=== PATIENT | male | born 1980 | race Caucasian/White ===

== ENCOUNTER 2016-05-01 07:21 | Emergency (ER) | payer MEDICAID, OTHER ==
[2016-05-01] MEDS ORDERED: diltiaZEM INJ 5 MG/ML VIAL IVP STA ×3 (07:55→11:00)
[2016-05-01] MEDS ORDERED: diltiaZEM INJ 5 MG/ML VIAL ONE ×2 (08:01→11:00)
[2016-05-01] MEDS ORDERED: MAGNESIUM SULFATE 2 GRAM 50 ML IV ONE ×2 (12:36→12:48)
== END 2016-05-01 13:36 | disposition home or self-care (01) ==
DX: I48.91 Unspecified atrial fibrillation (principal); Z87.891 Personal history of nicotine dependence

== ENCOUNTER 2016-09-03 10:43 | Outpatient (CLI) | payer BC | END 2016-09-03 10:44 | disposition home or self-care (01) | LOC: SC 10:43 | PROVIDERS: ATTEND Internal Medicine Pulmonary Disease | DX: G47.30 Sleep apnea, unspecified (principal); G47.8 Other sleep disorders; R06.83 Snoring; G47.10 Hypersomnia, unspecified | CPT/HCPCS: 99203; 99212 ==

== ENCOUNTER 2016-11-05 15:13 | Outpatient (CLI) | payer BC | END 2016-11-05 15:14 | disposition home or self-care (01) | LOC: SC 15:13 | PROVIDERS: ATTEND Nurse Practitioner Family | DX: Z53.9 Procedure and treatment not carried out, unspecified reason (principal) ==

== ENCOUNTER 2016-11-12 09:23 | Outpatient (CLI) | payer BC | END 2016-11-12 09:24 | disposition home or self-care (01) | LOC: SC 09:23 | PROVIDERS: ATTEND Nurse Practitioner Family | DX: G47.33 Obstructive sleep apnea (adult) (pediatric) (principal) | CPT/HCPCS: 99212; 99214 ==

== ENCOUNTER 2017-01-10 16:36 | Outpatient (CLI) | payer BC ==
--- NOTE | 2017-01-11 09:00 | XRAY Report ---
TWO-VIEW CHEST: 01/10/2017 CLINICAL INDICATION: Cough, fever. COMPARISON: 05/01/2016, 04/04/2016 FINDINGS: Frontal and lateral views of the chest demonstrate a normal cardiac silhouette. The lungs remain clear. Previously questioned nodular density in the left lateral lower chest does not persis t. No effusion or pneumothorax is present. IMPRESSION: NORMAL CHEST. JOB #: [id number] EXT JOB #:[id number]
== END 2017-01-10 16:37 | disposition home or self-care (01) ==
LOC: DI 16:36
PROVIDERS: ATTEND Family Medicine
DX: R05 Cough (principal); R50.9 Fever, unspecified
CPT/HCPCS: 71020

== ENCOUNTER 2017-05-17 19:31 | Outpatient (CLI) | payer BC | END 2017-05-17 19:32 | disposition EMS.NT | LOC: EMS 19:31 | PROVIDERS: ATTEND Surgery | DX: R06.00 Dyspnea, unspecified (principal) ==

== ENCOUNTER 2017-06-28 16:38 | Outpatient (CLI) | payer OTHER, BC, MEDICAID ==
--- NOTE | 2017-06-30 11:28 | XRAY Report ---
EXAM: LEFT SHOULDER RADIOGRAPHY EXAM DATE: 06/28/2017 05:00 PM. CLINICAL HISTORY: Fall with left shoulder injury COMPARISON: None. TECHNIQUE: 3 views. FINDINGS: Bones: Normal. No fracture or bone lesion. Joints: The glenohumeral and acromioclavicular joints are normal. Soft tissues: The visualized hemithorax is unremarkable. No soft tissue swelling. IMPRESSION: Normal shoulder radiography. [facility] Referring Provider Line: [phone] SITE ID: [id number]
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
== END 2017-06-28 16:39 | disposition home or self-care (01) ==
LOC: DI 16:38
PROVIDERS: ATTEND Family Medicine
DX: S46.812A Strain of other muscles, fascia and tendons at shoulder and upper arm level, left arm, initial encounter (principal); M25.422 Effusion, left elbow

== ENCOUNTER 2018-06-22 05:07 | Emergency (ER) | payer BC, MEDICAID ==
[2018-06-22 05:15] VITALS: BP 125/93
--- NOTE | 2018-06-22 05:46 | ED Physician Documentation ---
PD HPI ABD PAIN - Stated complaint Stated Complaint: L SIDE PAIN - Chief complaint Chief Complaint: Abd Pain - History obtained from History obtained from: Patient, Family - History of Present Illness Timing - onset: Today Timing - duration: Minutes Timing - details: Abrupt onset, Now resolved Quality: Sharp, Pain Location: LUQ Improved by: Other (nothing) Worsened by: Other (nothing) Associated symptoms: Nausea. No: Fever, Vomiting, Diarrhea, Constipation Similar symptoms before: Has not had sx before Recently seen: Not recently seen - Additional information Additional information: 37-year-old male got home from work and was at home when he had the sudden onset of a pain in the left upper quadrant of his abdomen. The he states the pain was severe and he became nauseous with it and he decided to come to the hospital. While his was driving him to the hospital his pain resolved and he now has some area that seems a bit sore but he does not have any significant pain. He has not had pain in this area previously and he does believe that he had a normal bowel movement at work tonight. Review of Systems Constitutional: denies: Fever Eyes: denies: Decreased vision Ears: denies: Ear pain Nose: denies: Rhinorrhea / runny nose, Congestion Throat: denies: Sore throat Cardiac: denies: Chest pain / pressure, Palpitations Respiratory: denies: Dyspnea, Cough GI: reports: Abdominal Pain, Nausea. denies: Vomiting : denies: Dysuria, Frequency, Hematuria Skin: denies: Rash Musculoskeletal: reports: Back pain. denies: Neck pain, Extremity pain Neurologic: denies: Generalized weakness, Focal weakness, Numbness PD PAST MEDICAL HISTORY - Past Medical History Past Medical History: Yes Cardiovascular: Atrial fibrillation Endocrine/Autoimmune: None Psych: Depression, Anxiety, Bipolar disorder, ADD/ADHD - Past Surgical History Past Surgical History: No - Present Medications Home Medications: Ambulatory Orders Medication Instructions Recorded Confirmed No Known Home Medications 06/22/18 06/22/18 - Allergies Allergies/Adverse Reactions: Allergies Allergy/AdvReac Type Severity Reaction Status Date / Time acetaminophen Allergy Anxiety Verified 06/22/18 05:15 - Social History Does the pt smoke?: Yes Smoking Status: Current every day smoker Does the pt drink ETOH?: Yes Does the pt have substance abuse?: Yes - Immunizations Immunizations are current?: Yes PD ED PE NORMAL - Vitals Vital signs reviewed: Yes (hypertensive mild ) - General General: Alert and oriented X 3, No acute distress, Well developed/nourished - HEENT HEENT: Atraumatic, PERRL, EOMI - Neck Neck: Supple, no meningeal sign, No bony TTP - Cardiac Cardiac: RRR, No murmur - Respiratory Respiratory: No respiratory distress, Clear bilaterally - Abdomen Abdomen: Normal bowel sounds, Soft, Non tender, Non distended, No organomegaly - Back Back: No CVA TTP, No spinal TTP - Derm Derm: Normal color, No rash - Extremities Extremities: No deformity, No edema - Neuro Neuro: Alert and oriented X 3, 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 PD MEDICAL DECISION MAKING - ED course Complexity details: reviewed old records, considered differential, d/w patient, d/w family ED course: 37-year-old male with acute onset of left flank pain has resolution of his symptoms in route to the hospital. On my examination the patient has no specific symptoms and no specific physical findings. Ultrasound of the left kidney reveals a sonographically nontender kidney and no evidence of hydronephrosis. I discussed with the patient causes of severe resolving abdominal pain and reasons to return to the emergency department. He and his would like to go home and not pursue further workup. Departure - Departure Disposition: 01 Home, Self Care Clinical Impression: Flank pain, acute Condition: Stable Instructions: ED Flank Pain Uncertain Cause Follow-Up: Cabrera Mason DO [Primary Care Provider] -
== END 2018-06-22 05:58 | disposition home or self-care (01) ==
LOC: ED 05:07
DX: F17.200 Nicotine dependence, unspecified, uncomplicated (principal)
CPT/HCPCS: 99282; 99283

== ENCOUNTER 2019-03-04 05:28 | Emergency (ER) | payer BC ==
--- NOTE | 2019-03-04 05:35 | ED Physician Documentation ---
History of Present Illness - Stated complaint Stated Complaint: CLEAN BILL OF HEALTH NOTE - History obtained from History obtained from: Patient - History of Present Illness Timing: How many days ago (4) Pain level now: 0 - Additonal information Additional information: presents to ED requesting note allowing him to return to work. patient says he missed a few days of work due to URI symptoms (cough, chills, sweats, sinus congestion) and his place of work requires a note to return.patient says his symptoms started 4 days ago but have completely resolved. he is asymptomatic. Review of Systems Constitutional: reports: Chills, Sweats Respiratory: reports: Cough (resolved) PD PAST MEDICAL HISTORY - Past Medical History Cardiovascular: Atrial fibrillation Endocrine/Autoimmune: None Psych: Depression, Anxiety, Bipolar disorder, ADD/ADHD - Past Surgical History Past Surgical History: No - Present Medications Home Medications: Ambulatory Orders Medication Instructions Recorded Confirmed No Known Home Medications 06/22/18 06/22/18 - Allergies Allergies/Adverse Reactions: Allergies Allergy/AdvReac Type Severity Reaction Status Date / Time No Known Drug Allergies Allergy Verified 03/04/19 05:58 - Social History Does the pt smoke?: Yes Smoking Status: Current every day smoker Does the pt drink ETOH?: Yes Does the pt have substance abuse?: Yes - Immunizations Immunizations are current?: Yes PD ED PE NORMAL - Vitals Vital signs reviewed: Yes - General General: Alert and oriented X 3, No acute distress, Well developed/nourished - HEENT HEENT: Moist mucous membranes, Pharynx benign - Cardiac Cardiac: RRR, No murmur - Respiratory Respiratory: No respiratory distress, Clear bilaterally Results - Vitals Vitals: Oxygen O2 Source Room air PD MEDICAL DECISION MAKING - ED course Complexity details: considered differential, d/w patient Departure - Departure Disposition: 01 Home, Self Care Clinical Impression: Return to work exam Condition: Good Instructions: ED Screening Exam Medical Nonurgent Forms: Activity restrictions Discharge Date/Time: 03/04/19 06:08
[2019-03-04 05:53] VITALS: BP 119/86
== END 2019-03-04 06:08 | disposition home or self-care (01) ==
LOC: ED 05:28
DX: J34.89 Other specified disorders of nose and nasal sinuses (principal); R05 Cough; R68.83 Chills (without fever); F17.200 Nicotine dependence, unspecified, uncomplicated
CPT/HCPCS: 99281; 99282

== ENCOUNTER 2019-05-24 08:18 | Outpatient (CLI) | payer BC, OTHER | END 2019-05-24 08:19 | disposition critical access hospital (66) | LOC: EMS 08:18 | PROVIDERS: ATTEND Surgery | DX: S09.90XA Unspecified injury of head, initial encounter (principal); M25.511 Pain in right shoulder; Y04.2XXA Assault by strike against or bumped into by another person, initial encounter | CPT/HCPCS: A0425; A0427 ==

== ENCOUNTER 2019-05-24 08:33 | Emergency (ER) | payer BC, OTHER ==
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
[2019-05-24 10:36] VITALS: BP 128/98
== END 2019-05-24 10:52 | disposition home or self-care (01) ==
LOC: EDUNIT# → ED 08:33
DX: S06.0X1A Concussion with loss of consciousness of 30 minutes or less, initial encounter (principal); S00.83XA Contusion of other part of head, initial encounter; S16.1XXA Strain of muscle, fascia and tendon at neck level, initial encounter; S46.911A Strain of unspecified muscle, fascia and tendon at shoulder and upper arm level, right arm, initial encounter; S00.81XA Abrasion of other part of head, initial encounter; S00.212A Abrasion of left eyelid and periocular area, initial encounter; S30.810A Abrasion of lower back and pelvis, initial encounter; Y04.2XXA Assault by strike against or bumped into by another person, initial encounter; Y92.009 Unspecified place in unspecified non-institutional (private) residence as the place of occurrence of the external cause; M47.812 Spondylosis without myelopathy or radiculopathy, cervical region; Z87.891 Personal history of nicotine dependence
CPT/HCPCS: 70450; 72125; 99284

== ENCOUNTER 2020-04-30 22:29 | Outpatient (CLI) | payer SELFPAY | END 2020-04-30 22:30 | disposition critical access hospital (66) | LOC: EMS 22:29 | PROVIDERS: ATTEND Surgery | DX: T18.128A Food in esophagus causing other injury, initial encounter (principal); X58.XXXA Exposure to other specified factors, initial encounter; Y93.89 Activity, other specified; Y92.009 Unspecified place in unspecified non-institutional (private) residence as the place of occurrence of the external cause | CPT/HCPCS: A0425; A0429 ==

== ENCOUNTER 2020-04-30 22:48 | Emergency (ER) | payer BC, OTHER ==
[2020-04-30] MEDS ORDERED: GLUCAGON 1 MG/ML VIAL IVP STA (23:09)
[2020-04-30] MEDS ORDERED: NITROGLYCERIN SL 0.4 MG TABLET SL STA (23:14)
[2020-04-30] MEDS ORDERED: SODIUM CHLORIDE 0.9% 1,000 ML IV STA (23:14)
[2020-04-30] MEDS ORDERED: ONDANSETRON 4 MG/2 ML VIAL IVP STA (23:28)
--- NOTE | 2020-04-30 23:32 | ED Physician Documentation ---
History of Present Illness - Stated complaint Stated Complaint: FOREIGN BODY IN THROAT - Chief complaint Chief Complaint: Heent - History obtained from History obtained from: Patient - Additonal information Additional information: The patient comes emergency department chief complaint of "I got meat stuck in my throat". The patient states that he has a "narrow airway" and that he took too large a bite of his steak and did not chew it well enough. He states that he went to swallow, but felt as though the meat got stuck at the bottom of his neck. He states he tried to drink some milk and some water but they just came right back up. Patient states incident happened about 2 hours ago. He says he feels as though the blockage may have cleared a little. He states he has not been spitting up his saliva anymore and has been able to swallow that several times. He has not tried drinking any more liquid otherwise, however. Patient denies history of esophageal food impaction previously. He states he has always been prone to choking on things more easily. He did have some coughing and felt as though he might choke tonight, but the symptoms passed. He is no longer feeling like that now. No difficulty breathing. He has a discomfort in his chest. He states he feels a little nauseated, as well. No other complaints at this time. Review of Systems Ten Systems: 10 systems reviewed and negative Constitutional: reports: Reviewed and negative Eyes: reports: Reviewed and negative Ears: reports: Reviewed and negative Nose: reports: Reviewed and negative Throat: reports: Other (dysphagia) Cardiac: reports: Chest pain / pressure Respiratory: reports: Reviewed and negative GI: reports: Nausea, Reviewed and negative : reports: Reviewed and negative Skin: reports: Reviewed and negative Musculoskeletal: reports: Reviewed and negative Neurologic: reports: Reviewed and negative Psychiatric: reports: Reviewed and negative Endocrine: reports: Reviewed and negative Immunocompromised: reports: Reviewed and negative PD PAST MEDICAL HISTORY - Past Medical History Cardiovascular: Atrial fibrillation Endocrine/Autoimmune: None Psych: Depression, Anxiety, Bipolar disorder, ADD/ADHD - Past Surgical History Past Surgical History: No Ortho: Spine surgery - Present Medications Home Medications: Ambulatory Orders Medication Instructions Recorded Confirmed Omeprazole 40 mg PO DAILY #60 capsule. 05/01/20 - Allergies Allergies/Adverse Reactions: Allergies Allergy/AdvReac Type Severity Reaction Status Date / Time No Known Drug Allergies Allergy Verified 05/24/19 08:44 - Social History Does the pt smoke?: Yes Smoking Status: Former smoker Does the pt drink ETOH?: No Does the pt have substance abuse?: No - Immunizations Immunizations are current?: Yes - POLST Patient has POLST: No PD ED PE NORMAL - Vitals Vital signs reviewed: Yes - General General: Alert and oriented X 3, No acute distress - HEENT HEENT: Atraumatic, PERRL, EOMI, Moist mucous membranes (Patient is handling his secretions well. He swallows several times during exam, without coughing or regurgitation of secretions. No hypersalivation.) - Neck Neck: Supple, no meningeal sign, No adenopathy, Thyroid normal, Other (No masses, no tenderness.) - Cardiac Cardiac: RRR, No murmur, Strong equal pulses - Respiratory Respiratory: No respiratory distress, Clear bilaterally - Abdomen Abdomen: Soft, Non distended, Other (Mild tenderness, epigastric region. No rebound or guarding.) - Derm Derm: Warm and dry - Extremities Extremities: No deformity - Neuro Neuro: Alert and oriented X 3 - Psych Psych: Normal mood, Normal affect Results - Vitals Vitals: Vital Signs - 24 hr 04/30/20 22:53 Temperature 36.9 C Heart Rate 84 Respiratory 18 Rate Blood Pressure 133/96 H O2 Saturation 96 Oxygen O2 Source Room air PD MEDICAL DECISION MAKING - ED course Complexity details: considered differential, d/w patient ED course: Patient was actually fairly well-appearing, though he did appear slightly anx ious and uncomfortable on exam. He was given a milligram of glucagon IV and a sublingual nitroglycerin after drinking approximately 2/3 cup of water and regurgitating about 1/8 cup back up. Departure - Departure Disposition: 01 Home, Self Care Clinical Impression: Esophageal obstruction due to food impaction GERD (gastroesophageal reflux disease) Qualifiers: Esophagitis presence: esophagitis presence not specified Qualified Code(s): K21.9 - Gastro-esophageal reflux disease without esophagitis Condition: Stable Instructions: ED GERD, ED Foreign Body Esophageal Rslv Prescriptions: Omeprazole 40 mg PO DAILY #60 capsule.
[2020-05-01 00:43] VITALS: BP 121/81
== END 2020-05-01 00:34 | disposition home or self-care (01) ==
LOC: EDUNIT# → ED 22:48 → SUPCPDRO 22:48 → ED 05-01 00:34
DX: K22.2 Esophageal obstruction (principal); K21.9 Gastro-esophageal reflux disease without esophagitis; Z87.891 Personal history of nicotine dependence
CPT/HCPCS: 96374; 99283; 99284; A9270

== ENCOUNTER 2020-11-23 12:36 | Outpatient (CLI) | payer OTHER | END 2020-11-23 12:37 | disposition critical access hospital (66) | LOC: EMS 12:36 | DX: R42 Dizziness and giddiness (principal) | CPT/HCPCS: A0425; A0427 ==

== ENCOUNTER 2020-11-23 12:55 | Emergency (ER) | payer OTHER ==
[2020-11-23] MEDS ORDERED: SODIUM CHLORIDE 0.9% 1,000 ML IV STA (13:14)
[2020-11-23] MEDS ORDERED: PROCAINAMIDE 1,000 MG in SODIUM CHLORIDE 0.9% 240 ML IV STA (13:25)
--- NOTE | 2020-11-23 13:36 | ED Physician Documentation ---
History of Present Illness - Stated complaint Stated Complaint: DIZZY - Chief complaint Chief Complaint: Cardiac - History obtained from History obtained from: Patient, Family, EMS - History of Present Illness Timing: Today Pain level max: 0 Pain level now: 0 - Additonal information Additional information: Patient is a 40-year-old male who states that he went into atrial fibrillation this morning. [place] lightheaded and dizzy. He states that this occurs a few times per year. He states that he thinks he has a heart valve issue, but is not sure. He is followed by Dr. Figueredo at [facility]. He states he is on no medications currently. He was given diltiazem, 25 mg IV by EMS. States feels better. No chest pain. No shortness of breath. No abdominal pain. No vomiting. No diarrhea. Review of Systems Ten Systems: 10 systems reviewed and negative Constitutional: denies: Fever, Chills Nose: denies: Rhinorrhea / runny nose Throat: denies: Dental pain / toothache, Sore throat Cardiac: reports: Palpitations. denies: Chest pain / pressure Respiratory: denies: Cough GI: denies: Vomiting, Diarrhea Skin: denies: Rash Musculoskeletal: denies: Neck pain, Back pain PD PAST MEDICAL HISTORY - Past Medical History Past Medical History: Yes Cardiovascular: Atrial fibrillation, Valve disorder Endocrine/Autoimmune: None Psych: Depression, Anxiety, Bipolar disorder, ADD/ADHD - Past Surgical History Past Surgical History: No Ortho: Spine surgery - Present Medications Home Medications: Ambulatory Orders Medication Instructions Recorded Confirmed Omeprazole 40 mg PO DAILY #60 capsule. 05/01/20 Rivaroxaban [Xarelto] 15 mg PO BID #42 tablet 11/23/20 dilTIAZem HCL [Diltiazem 24Hr ER 120 mg PO DAILY #30 11/23/20 (Xr)] - Allergies Allergies/Adverse Reactions: Allergies Allergy/AdvReac Type Severity Reaction Status Date / Time No Known Drug Allergies Allergy Verified 11/23/20 13:07 - Social History Does the pt smoke?: Yes Smoking Status: Current every day smoker Does the pt drink ETOH?: No Does the pt have substance abuse?: No - Immunizations Immunizations are current?: Yes - POLST Patient has POLST: No PD ED PE NORMAL - Vitals Vital signs reviewed: Yes - General General: Alert and oriented X 3, No acute distress, Well developed/nourished - HEENT HEENT: Moist mucous membranes - Neck Neck: Supple, no meningeal sign - Cardiac Cardiac: Strong equal pulses, Other (irregular) - Respiratory Respiratory: No respiratory distress, Clear bilaterally - Abdomen Abdomen: Soft, Non tender, Non distended - Derm Derm: Warm and dry, No rash - Extremities Extremities: No edema, No calf tenderness / cord - Neuro Neuro: Alert and oriented X 3 - Psych Psych: Normal mood, Normal affect Results - Vitals Vitals: Vital Signs - 24 hr 11/23/20 11/23/20 11/23/20 13:01 13:09 13:30 Temperature 36.8 C Heart Rate 93 94 86 Respiratory 14 14 17 Rate Blood Pressure 99/78 99/78 104/74 Blood Pressure 99/78 [Left] O2 Saturation 98 98 98 11/23/20 11/23/20 11/23/20 13:50 14:30 15:00 Temperature Heart Rate 90 93 93 Respiratory 16 16 16 Rate Blood Pressure 99/80 137/90 H 91/72 Blood Pressure [Left] O2 Saturation 98 97 97 11/23/20 15:30 Temperature Heart Rate 92 Respiratory 16 Rate Blood Pressure 101/66 Blood Pressure [Left] O2 Saturation 98 Oxygen O2 Source Room air - EKG (time done) 1258 Rate: Rate (enter#) (82) Rhythm: Atrial fibrillation [place]: Normal QRS: Normal Ischemia: ST elevation c/w repol - Labs Labs: Laboratory Tests 11/23/20 11/23/20 13:41 13:41 WBC 5.4 RBC 5.87 Hgb 17.0 Hct 49.5 MCV 84.3 MCH 29.0 MCHC 34.3 RDW 12.4 Plt Count 200 MPV 10.0 Neut # (Auto) 3.0 Lymph # (Auto) 1.6 [place] # (Auto) 0.7 Eos # (Auto) 0.1 Baso # (Auto) 0.1 Absolute Nucleated RBC 0.00 Nucleated RBC % 0.0 Sodium 140 Potassium 5.0 Chloride 107 Carbon Dioxide 27 Anion Gap 6.0 BUN 20 Creatinine 0.9 Estimated GFR (MDRD) 93 Glucose 106 H Calcium 8.6 Total Bilirubin 0.9 AST 18 ALT 26 Alkaline Phosphatase 61 Total Protein 6.4 L Albumin 3.6 Globulin 2.8 Albumin/Globulin Ratio 1.3 PD MEDICAL DECISION MAKING - ED course Complexity details: reviewed results, re-evaluated patient, considered differential, d/w patient ED course: Patient with rate controlled atrial fibrillation. He was given procainamide, but did not convert. Unclear how long he has been in the atrial fibrillation. We will anticoagulate him and discuss electrical cardioversion after he is adequately anticoagulated. He will follow up with his associate of science in nursing for further care as well. We will start him on a low-dose of diltiazem for rate control. Patient currently asymptomatic. Patient counseled regarding signs and symptoms for which I believe and urgent re-evaluation would be necessary. Patient with good understanding of and agreement to plan and is comfortable going home at this time This document was made in part using voice recognition software. While efforts are made to proofread this document, sound alike and grammatical errors may occur. Discussed risks and benefits of NOAC versus warfarin. Patient elects Xarelto. Departure - Departure Disposition: 01 Home, Self Care Clinical Impression: Atrial fibrillation Qualifiers: Atrial fibrillation type: paroxysmal Qualified Code(s): I48.0 - Paroxysmal atrial fibrillation Condition: Good Instructions: ED Afib Follow-Up: Cabrera Mason DO [Primary Care Provider] - Deni Figueredo MD [Physician No Access] - Within 1 week Prescriptions: dilTIAZem HCL [Diltiazem 24Hr ER (Xr)] 120 mg PO DAILY #30 Rivaroxaban [Xarelto] 15 mg PO BID #42 tablet Comments: We will start you on Xarelto for your atrial fibrillation. This is a blood thinner, designed to help prevent strokes. Your doctor may be okay with changing you to a different medication, would recommend following up with your associate of science in nursing for further care. We will also start you on Cardizem, which will help control your heart rate. Return if you worsen. You also will need to be seen if you notice any blood in your stool, suffer any head trauma, chest or abdominal trauma as this could cause life-threatening bleeding. Discharge Date/Time: 11/23/20 16:00
[2020-11-23 13:46] LABS: BASOPHILS # (AUTO) 0.1 10^3/uL (0.0-0.1); BASOPHILS % (AUTO) 0.9 %; EOSINOPHILS # (AUTO) 0.1 10^3/uL (0.0-0.7); EOSINOPHILS % (AUTO) 2.2 %; HCT - HEMATOCRIT 49.5 % (42.0-52.0); LYMPHOCYTES # (AUTO) 1.6 10^3/uL (1.5-3.5); LYMPHOCYTES % (AUTO) 29.2 %; MEAN CORPUSCULAR HGB CONC 34.3 g/dL (32.0-36.0); MEAN CORPUSCULAR VOLUME 84.3 fL (80.0-94.0); MONOCYTES # (AUTO) 0.7 10^3/uL (0.0-1.0); MONOCYTES % (AUTO) 12.5 %; PLT - PLATELET COUNT 200 10^3/uL (130-450); RED BLOOD COUNT 5.87 10^6/uL (4.70-6.10); RED CELL DISTRIBUTION WIDTH 12.4 % (12.0-15.0); WHITE BLOOD COUNT 5.4 x10^3/uL (4.8-10.8)
[2020-11-23 13:58] LABS: ALBUMIN 3.6 g/dL (3.2-5.5); ALBUMIN/GLOBULIN RATIO 1.3 (1.0-2.2); BILIRUBIN,TOTAL 0.9 mg/dL (0.2-1.0); CALCIUM 8.6 mg/dL (8.5-10.3); CREATININE 0.9 mg/dL (0.6-1.2); TOTAL PROTEIN 6.4 g/dL (6.7-8.2)
[2020-11-23 15:51] VITALS: BP 101/66
== END 2020-11-23 16:00 | disposition home or self-care (01) ==
LOC: EDUNIT# → ED 12:55
DX: I48.0 Paroxysmal atrial fibrillation (principal); F17.200 Nicotine dependence, unspecified, uncomplicated
CPT/HCPCS: 36415; 80053; 85025; 93005; 96365; 99284; 99285; J2690

== ENCOUNTER 2020-12-28 17:47 | Outpatient (CLI) | payer OTHER | END 2020-12-28 23:59 | disposition home or self-care (01) | LOC: LAB.N 17:47 | PROVIDERS: ATTEND Nurse Practitioner | DX: J03.90 Acute tonsillitis, unspecified (principal) | CPT/HCPCS: 87070 ==

== ENCOUNTER 2021-04-15 06:54 | Outpatient (CLI) | payer OTHER ==
--- NOTE | 2021-04-15 13:54 | Ultrasound Report ---
PROCEDURE: Abdomen Complete INDICATIONS: LIVER NODULE TECHNIQUE: Real-time scanning was performed of the abdominal and retroperitoneal organs, with image documentatio n. COMPARISON: None. FINDINGS: Liver: Liver is normal in size and homogeneous in echotexture. The left lobe of the liver has a 1.7 x 1.5 x 1.4 cm simple cyst. The right lobe of the liver has a 1.2 x 1.5 x 1.2 cm cyst and a 0.9 x 0. 8 x 2.9 cm simple cyst. Gallbladder: A 3 x 4 x 5 mm polyp is noted within the gallbladder. No gallstones. No wall thickening or pericholecystic fluid. Biliary ducts: Intrahepatic bile ducts are non-dilated. Extrahepatic bile duct caliber measures 3 m m. Normal is 6-7 mm or less in diameter, or 10 mm or less post-cholecystectomy. Pancreas: The pancreas is obscured by bowel gas and not well visualized. Spleen: Spleen is normal in size and homogeneous in echotexture. Kidneys: Kidneys are normal in size and echotexture. Right kidney measures 10.0 cm long; left kidne y measures 11.7 cm long. No hydronephrosis or nephrolithiasis. No solid masses. Aorta: Visualized aorta is normal in caliber at less than 3 cm. Iliacs: Proximal common iliac arteries are normal in caliber at less than 2.5 cm. IVC: Intrahepatic inferior vena cava is patent. Miscellaneous: No free abdominal fluid. IMPRESSION: 1. Simple hepatic cysts. 2. 3 x 4 x 5 mm benign gallbladder polyp. No follow-up indicated. 3. No acute abnormality. Reviewed by: Ernesto Altamirano on 04/15/2021 12:53 PM [facility] Approved by: Ernesto Altamirano on 04/15/2021 12:53 PM [facility] Station ID: [id number]
== END 2021-04-15 06:55 | disposition home or self-care (01) ==
LOC: DI 06:54
PROVIDERS: ATTEND Family Medicine
DX: K76.89 Other specified diseases of liver (principal); K82.4 Cholesterolosis of gallbladder

== ENCOUNTER 2021-08-16 16:08 | Outpatient (CLI) | payer OTHER ==
[2021-08-16 17:32] VITALS: BP 132/78
--- NOTE | 2021-08-16 17:32 | SLEEP CARE CONSULTATION ---
Information from patient questionnaire entered by Emiliana Celis MA. I have reviewed and concur with the information entered by Emiliana Celis MA. This document represents the service I personally performed and the decisions made by me, Kaykay Spangler ARNP. History of Present Illness Service Date and Time: 08/16/2021 1608 Reason for Visit: New patient (LAST SEEN 2017, ON CPAP, ), Previously diagnosed sleep apnea, sleep apnea on CPAP therapy Chief Complaint: reports: Unrefreshed sleep, Snoring, Observed pauses in breathing, Fatigue, Frequent awakenings at night Date of Onset: don't know Usual bedtime: varies Time it takes to fall asleep: varies Snores at night: Yes Observed to quit breathing while asleep: Yes Sleeps alone due to snoring: No Number of times waking at night: 3-4 times (7-8 times per his ) Reasons for waking at night: reports: Choking, Gasping for air, Bathroom Toss, Turn, or Twitch while sleeping: Yes Recalls having dreams: Yes Usually gets out of bed at: 0430 Feels refreshed in the morning: No Morning headache: Yes (daily) Sleepy or fatigued during the day: Yes Ever fallen asleep while driving: No Takes day naps: No Dreams during day naps: No Year and Where: 09/2016 [facility] Type of Sleep Study: Home sleep study Additional HPI information: MARGUERITE BRODY was previously diagnosed to have mild, AHI 8.8, obstructive sleep apnea-hypopnea syndrome and comes in today with spouse to re-establish care for CPAP therapy. - Parasomnia Symptoms Ever been unable to move upon waking from sleep: No Walks in sleep: No Talks in sleep: Yes Ever acted out dreams in sleep: No Ever felt weak in the knees when startled or emotional: No Bothered by creepy, crawly, restless sensations in legs: Yes Problems with memory or concentration: Yes CPAP Compliance Data Compliance data discussion: He states he has not been able to use his CPAP because it is broken. He last updated his machine in 2017. He cannot use the machine because when he tried to use it last time after his heart surgery, the CPAP was pushing so much pressure it was causing aerophagia and sever stomach pain. He has used a nasal cushion mask in the past. He used [facility] in the past but they no longer do CPAP supplies. He forgot to bring in his memory chip today. Subjective Missed days of use due to: reports: other (machine broken) Patient concerns: reports: aerophagia. denies: mask discomfort, air blowing in eyes, mask leak noise, condensation in mask/hose, nasal congestion, dry mouth, nose, throat, epistaxis, other Observed to snore while using device: No Current pressure setting perceived as: too high On therapy, patient: reports: sleeping better, awakening more refreshed, being more awake and alert during the day, more rested overall, other (has a better attitude). 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 Patient is and lives in [place]. Have you smoked in the past 12 months: No (vaped, but stopped prior to cardioversion, 5 months ago) Cigarettes per day (20/pack): 20 Years of smokin Quit date: 2015 Smoking Pack Years: 30.0 Alcohol use: No Caffeine use: Yes Caffeine amount and frequency: 2 X DAILY Family History Family history of sleep disordered breathing: Yes Family Hx Sleep Apnea: Mother: Snoring, Sleep apnea - Untreated Allergies and Home Medications Known drug allergies: No Drug allergies reviewed: Yes (NKDA) Home medication list reviewed: Yes Allergy and home medication list: Allergies No Known Drug Allergies Allergy (Verified 11/23/20 13:07) Medications: Xarelto 20 mg Ditilazam 120 mg Omeprazole 40 mg Review of Systems Weight gain over past 5 years: 30 lbs Cardiovascular: reports: irregular heart rate or pulse Respiratory: reports: shortness of breath Gastrointestinal: reports: heartburn, difficulty swallowing, other (gas) Neurological: reports: headaches Ear/Nose/Throat: reports: sinus problems Physical Exam Vital signs obtained and entered by: SCOTT GARY Blood Pressure: 132/78 (RIGHT, PULSE 80, RESP 18, ) Cuff size: wrist Heart Rate: 89 O2 Saturation: 98 (WITHOUT MASK) Height: 6 ft 5 in Weight: 221 lb (WITH CLOTHES) Body Mass Index: 26.2 BMI Classification: Overweight Neck circumference: 16.5 (INCHES) Heart: regular rate and rhythm Lungs: clear bilaterally Impression and Plan 1. Suspected Obstructive Sleep Apnea-Hypopnea Syndrome, as previously diagnosed as as still suggested by a history of loud and irregular snoring, observed cessation of breath while asleep, gasping or choking in sleep, morning headache, frequent awakening during the night, unrefreshed sleep and cognitive impairment. Patient has not been using his CPAP due to a possible malfunction or change in his health. I recommend proceeding to polysomnography to confirm the diagnosis and to assess severity. If insurance does not require a sleep study then we will try to replace his Emily Dreamstation that may be defective. We will keep patient informed. He voiced understanding. The pathophysiology of obstructive sleep apnea-hypopnea syndrome was discussed with the patient and health risks of cardiovascular and cerebrovascular disease if not treated. Risks of drowsy driving discussed in detail and patient advised to avoid long distance driving and to heat treat puller at the first sign of drowsiness. Patient agreed to plan. * Schedule polysomnography. * Avoid long distance driving or driving when feeling sleepy. * Avoid alcohol, sedative and muscle relaxant around bedtime. * Attempt to lose weight. * Review instructions provided by trained office staff on how to prepare for the sleep study. * Return for follow-up after sleep study completed. Counseling Topics: Weight loss health impact Visit Type: In Office Time Spent with Patient (minutes): 34 Provider Statement: I spent 100% of the Face to Face Visit with the patient with greater than 50% spent counseling the patient and coordination of care.
== END 2021-08-16 16:09 | disposition home or self-care (01) ==
LOC: SC 16:08
PROVIDERS: ATTEND Nurse Practitioner Family
DX: G47.33 Obstructive sleep apnea (adult) (pediatric) (principal)
CPT/HCPCS: 99203; 99212

== ENCOUNTER 2022-04-04 17:29 | Emergency (ER) | payer OTHER ==
[2022-04-04 17:41] VITALS: BP 146/100
[2022-04-04] MEDS ORDERED: TETANUS/DIPHTHERIA/PERTUSSIS 0.5 ML SYRINGE IM ONE (18:23)
== END 2022-04-04 18:58 | disposition left against medical advice (07) ==
LOC: ED 17:29
DX: Z53.21 Procedure and treatment not carried out due to patient leaving prior to being seen by health care provider (principal)

== ENCOUNTER 2022-09-28 10:05 | Outpatient (CLI) | payer OTHER ==
[2022-09-28 12:46] LABS: BASOPHILS # (AUTO) 0.1 10^3/uL (0.0-0.1); BASOPHILS % (AUTO) 1.3 %; EOSINOPHILS # (AUTO) 0.3 10^3/uL (0.0-0.7); EOSINOPHILS % (AUTO) 6.4 %; HCT - HEMATOCRIT 50.9 % (42.0-52.0); HGB - HEMOGLOBIN 17.4 g/dL (14.0-18.0); LYMPHOCYTES # (AUTO) 1.2 10^3/uL (1.5-3.5); LYMPHOCYTES % (AUTO) 26.1 %; MEAN CORPUSCULAR HEMOGLOBIN 28.7 pg (27.0-31.0); MEAN CORPUSCULAR HGB CONC 34.2 g/dL (32.0-36.0); MEAN CORPUSCULAR VOLUME 83.9 fL (80.0-94.0); MEAN PLATELET VOLUME 10.2 fL (7.4-11.4); MONOCYTES # (AUTO) 0.4 10^3/uL (0.0-1.0); MONOCYTES % (AUTO) 9.4 %; NEUTROPHILS # (AUTO) 2.6 10^3/uL (1.5-6.6); NEUTROPHILS % (AUTO) 56.6 %; PLT - PLATELET COUNT 220 10^3/uL (130-450); RED BLOOD COUNT 6.07 10^6/uL (4.70-6.10); RED CELL DISTRIBUTION WIDTH 12.6 % (12.0-15.0); WHITE BLOOD COUNT 4.6 x10^3/uL (4.8-10.8)
[2022-09-28 13:23] LABS: ALBUMIN 3.6 g/dL (3.2-5.5); ALBUMIN/GLOBULIN RATIO 0.9 (1.0-2.2); ALKALINE PHOSPHATASE 78 IU/L (42-121); ALT ALANINE AMINOTRANSFERASE 27 IU/L (10-60); AST ASPARTATE AMINOTRANSFERASE 21 IU/L (10-42); BILIRUBIN,TOTAL 0.8 mg/dL (0.2-1.0); BUN - BLOOD UREA NITROGEN 20 mg/dL (6-20); CALCIUM 8.9 mg/dL (8.5-10.3); CARBON DIOXIDE - CO2 30 mmol/L (21-32); CHLORIDE 103 mmol/L (101-111); CHOL/HDL RATIO 3.7 (<5.0); CHOLESTEROL 201 mg/dL; GFR - MDRD 81 (>89); GLUCOSE 101 mg/dL (70-100); HDL CHOLESTEROL 55 mg/dL; LDL CHOLESTEROL,CALCULATED 131 mg/dL; LDL/HDL RATIO 2.4 (<3.6); LIPASE 30 U/L (22-51); POTASSIUM 4.6 mmol/L (3.5-5.0); SODIUM 141 mmol/L (135-145); TOTAL PROTEIN 7.5 g/dL (6.7-8.2); TRIGLYCERIDES 75 mg/dL; VLDL CHOLESTEROL 15 mg/dL
[2022-09-28 13:32] LABS: CRP - C-REACTIVE PROTEIN < 1.0 mg/dL (0-1.0)
[2022-09-29 03:09] LABS: HBsAG SCREEN Negative (Negative); HCV AB Non Reactive (Non Reactive)
== END 2022-09-28 10:06 | disposition home or self-care (01) ==
LOC: LAB.N 10:05
PROVIDERS: ATTEND Physician Assistant
DX: Z13.9 Encounter for screening, unspecified (principal); R10.13 Epigastric pain
CPT/HCPCS: 36415; 80053; 80061; 83690; 83721; 85025; 85651; 86140; 86803; 87340

== ENCOUNTER 2022-10-27 09:28 | Outpatient (CLI) | payer OTHER ==
--- NOTE | 2022-10-28 17:05 | Ultrasound Report ---
PROCEDURE: Abdomen Complete INDICATIONS: ABD PAIN TECHNIQUE: Real-time scanning was performed of the abdominal and retroperitoneal organs, with image documentatio n. COMPARISON: None. FINDINGS: Liver: Liver is normal in size.. Multiple simple cysts are seen throughout the liver. Hepatic echote xture is increased consistent with hepatic steatosis. Gallbladder: Several polyps all measuring less than 4 mm are seen in the gallbladder. No wall thicken ing or pericholecystic fluid. Biliary ducts: Intrahepatic bile ducts are non-dilated. Extrahepatic bile duct caliber measures 3.1 mm. Normal is 6-7 mm or less in diameter, or 10 mm or less post-cholecystectomy. Pancreas: Visualized portions of the pancreas are sonographically normal. Spleen: Spleen is normal in size and homogeneous in echotexture. Kidneys: Kidneys are normal in size and echotexture. Right kidney measures 11.2 cm long; left kidne y measures 13.2 cm long. No hydronephrosis or nephrolithiasis. No solid masses. No complex renal cy stic lesions which require follow-up. Aorta: Visualized aorta is normal in caliber at less than 3 cm. Iliacs: Proximal common iliac arteries are normal in caliber at less than 2.5 cm. IVC: Intrahepatic inferior vena cava is patent. Miscellaneous: No free abdominal fluid. IMPRESSION: 1. Hepatic pressure is increased consistent with hepatic steatosis. 2. Multiple small benign polyps all less than 4 mm. Reviewed by: Ernesto Altamirano on 10/28/2022 4:03 PM [facility] Approved by: Ernesto Altamirano on 10/28/2022 4:03 PM [facility] Station ID: [id number]
== END 2022-10-27 09:29 | disposition home or self-care (01) ==
LOC: DI 09:28
PROVIDERS: ATTEND Physician Assistant
DX: R10.12 Left upper quadrant pain (principal); R10.13 Epigastric pain; K82.4 Cholesterolosis of gallbladder